=== PATIENT | female | born 1985 | race Caucasian/White ===

== ENCOUNTER 2016-06-20 10:33 | Inpatient (IN) ==
[2016-06-20] MEDS ORDERED: PEPCID IV PRN (20:26)
[2016-06-20] MEDS ORDERED: PEPCID PO PRN (20:26)
[2016-06-20] MEDS ORDERED: STADOL IV PRN ×3 (20:26)
[2016-06-20] MEDS ORDERED: ZOFRAN IV PRN (20:26)
[2016-06-20] MEDS ORDERED: AMBIEN PO PRN (20:26)
[2016-06-20] MEDS ORDERED: BRETHINE SUBQ PRN (20:26)
[2016-06-20] MEDS ORDERED: TYLENOL PO PRN (20:26)
[2016-06-20] MEDS ORDERED: AMPICILLIN 2 GM/NS 2 GM/100 ML IVPB IV ONE (20:26)
[2016-06-20] MEDS ORDERED: KEFZOL 1 GM/D5W 1 GM/50 ML IVPB IV PRN (20:26)
[2016-06-20] MEDS: LR 1,000 ML IV ONE (22:28)
[2016-06-20] MEDS ORDERED: CYTOTEC PO ONE (23:00)
[2016-06-20 23:11] LABS: MANUAL DIFF NEEDED? NO
[2016-06-20 23:11] LABS: URINE SOURCE VOIDED
[2016-06-20 23:20] LABS: BASO% 0.2 % (0.0-0.8); EOS# 0.11 X1000 (0.0-0.7); EOS% 0.7 % (0.0-10.0); HEMATOCRIT 36.2 % (37.0-47.0); IMM GRAN# 0.05 X1000 (0.0-0.04); IMM GRAN% 0.3 % (0.0-0.5); LYMPH# 2.73 X1000 (1.2-3.4); LYMPH% 17.5 % (20.5-51.1); MCH 29.3 PG (27-31); MCHC 33.1 g/dL (33-37); MCV 88.5 FL (81-99); MONO# 0.98 X1000 (0.11-0.59); MONO% 6.3 % (1.7-9.3); MPV 10.9 FL (7.4-10.4); PLT 345 X1000 (130-400); RBC 4.09 XMIL (4.2-5.4)
[2016-06-21 00:17] LABS: BILIRUBIN URINE NEGATIVE (NEGATIVE); BLOOD URINE NEGATIVE (NEGATIVE); CLARITY SL. CLOUDY (CLEAR); COLOR YELLOW; GLUCOSE URINE NEGATIVE (NEGATIVE); LEUKOCYTES URINE TRACE (NEGATIVE); NITRITE URINE NEGATIVE (NEGATIVE); PH URINE 6.5; PROTEIN URINE NEGATIVE (NEGATIVE); SP GRAVITY URINE 1.015; UR AMPHETAMINES QUAL NONE DETECTED (NONE DETECT); UR BARBITUATES QUAL NONE DETECTED (NONE DETECT); UR BENZODIAZEPIN QUAL NONE DETECTED (NONE DETECT); UR CANNABINOIDS QUAL NONE DETECTED (NONE DETECT); UR COCAINE QUAL NONE DETECTED (NONE DETECT); UR MDMA QUAL NONE DETECTED (NONE DETECT); UR METHADONE QUAL NONE DETECTED (NONE DETECT); UR METHAMPHETAMINE QUAL NONE DETECTED (NONE DETECT); UR OPIATES QUAL NONE DETECTED (NONE DETECT); UR OXYCODONE QUAL NONE DETECTED (NONE DETECT); UR PCP QUAL NONE DETECTED (NONE DETECT); UR TCA QUAL NONE DETECTED (NONE DETECT); UROBILINOGEN URINE NORMAL
[2016-06-21] MEDS ORDERED: CYTOTEC PO SCH (03:00)
[2016-06-21] MEDS: AMPICILLIN 1 GM/NS 1 GM/50 ML IVPB IV SCH ×4 (03:30→14:54)
[2016-06-21] MEDS: LR 1,000 ML IV ONE ×2 (06:52→11:56)
[2016-06-21] MEDS ORDERED: PITOCIN 30 UNITS/LR 30 UNITS/500 ML IV.SOLN IV SCH (07:00)
[2016-06-21] MEDS ORDERED: LR 0 ML ONE (11:31)
[2016-06-21] MEDS ORDERED: FENTANYL-BUPIV-NS 2 MCG-0.1% 200 ML ONE (11:31)
[2016-06-21] MEDS ORDERED: XYLOCAINE-MPF 1% 5 ML ONE (11:33)
[2016-06-21] MEDS ORDERED: FENTANYL-BUPIV-NS 2 MCG-0.1% 200 ML EPIDURAL PRN (11:56)
[2016-06-21] MEDS ORDERED: LR 1,000 ML ONE ×2 (14:46→18:26)
[2016-06-21] MEDS ORDERED: NESACAINE-MPF 3% ONE (17:10)
[2016-06-21] MEDS ORDERED: FENTANYL ONE (17:10)
[2016-06-21] MEDS ORDERED: SENSORCAINE-MPF 0.5%/EPI 1:200,000 ONE (17:10)
[2016-06-21] MEDS ORDERED: PITOCIN ONE ×2 (18:18→18:21)
[2016-06-21] MEDS ORDERED: DURAMORPH ONE (18:19)
[2016-06-21] MEDS ORDERED: PITOCIN 20 UNITS/LR 20 UNITS/1,000 ML IV.SOLN ONE ×2 (18:19→21:52)
[2016-06-21] MEDS ORDERED: ZOFRAN ONE ×2 (18:19→22:35)
[2016-06-21] MEDS ORDERED: METHERGINE ONE (18:20)
[2016-06-21] MEDS ORDERED: BICITRA ONE (18:26)
[2016-06-21] MEDS ORDERED: BENADRYL IV PRN (18:32)
[2016-06-21] MEDS ORDERED: ZOFRAN ODT PO PRN (18:32)
[2016-06-21] MEDS ORDERED: ZOFRAN IV PRN ×2 (18:32)
[2016-06-21] MEDS ORDERED: NARCAN INJ PRN (18:32)
[2016-06-21] MEDS ORDERED: TORADOL IV PRN (18:33)
[2016-06-21] MEDS ORDERED: NORCO-5 PO PRN ×3 (18:33→22:16)
[2016-06-21] MEDS ORDERED: NORCO-10 PO PRN ×2 (18:34→20:08)
--- NOTE | 2016-06-21 18:38 | HISTORY AND PHYSICAL ---
PHYSICIAN: Dr. Duncan. PREOPERATIVE DIAGNOSIS: Failed induction of labor. SUMMARY: Melissa Prakash is a 30-year-old primigravida who is at 39-1/2 weeks gestation. Her blood type is A negative. Rubella immune. Hepatitis B surface antigen, HIV are negative. Group B strep is positive. The patient had late entry into care. We are basing her due date on last menstrual period and her ultrasounds. Her blood pressures have been increasing. Dr. Chicas made the decision to proceed with induction of labor due to -induced hypertension. She was brought into labor and delivery last night and received Cytotec. We also began group B strep prophylaxis. She was closed and uneffaced is when I 1st checked her this morning. Later in the morning she was 2 cm, 50% -1, I was able to break her water. She has made no significant change in her cervical dilatation since that time. After discussing options with the patient, decision was made to proceed with delivery due to failed induction of labor. PAST MEDICAL HISTORY: Patient has no chronic medical or surgical illnesses. CURRENT MEDICATIONS: vitamins. ALLERGIES: None. PHYSICAL EXAMINATION: GENERAL: Shows an obese, gravid female. VITAL SIGNS: Stable. She is afebrile. CARDIOVASCULAR: Regular rate and rhythm. No murmurs, rubs, gallops. PULMONARY: Clear. BREASTS: No masses. ABDOMEN: Gravid, cervix as above. EXTREMITIES: 1+ edema. IMPRESSION: 1. Term . 2. -induced hypertension. 3. Failed induction of labor. PLAN: Due to failed induction of labor will proceed with delivery. Risks, benefits, possible complications, reasonable expectations of this operation have been discussed in detail. cc: Newton Duncan MD
[2016-06-21] MEDS ORDERED: CYTOTEC PO PRN ×2 (20:08→22:16)
[2016-06-21] MEDS ORDERED: PERCOCET-10 PO PRN (20:08)
[2016-06-21] MEDS ORDERED: DEMEROL PO PRN ×4 (20:08→22:16)
[2016-06-21] MEDS ORDERED: HYDROXYZINE IM PRN ×2 (20:08→22:16)
[2016-06-21] MEDS ORDERED: DEMEROL IM PRN ×2 (20:08→22:16)
[2016-06-21] MEDS ORDERED: PITOCIN 20 UNITS/LR 20 UNITS/1,000 ML IV.SOLN IV ONE ×2 (20:08→22:16)
[2016-06-21] MEDS ORDERED: PITOCIN IM PRN ×2 (20:08→22:16)
[2016-06-21] MEDS ORDERED: MOTRIN PO PRN (20:08)
[2016-06-21] MEDS ORDERED: BOOSTRIX VACCINE IM ONE (20:08)
[2016-06-21] MEDS ORDERED: PHENERGAN IM PRN ×2 (20:08→22:16)
[2016-06-21] MEDS ORDERED: DULCOLAX PR PRN ×2 (20:08→22:16)
[2016-06-21] MEDS ORDERED: MYLICON PO PRN ×2 (20:08→22:16)
[2016-06-21] MEDS ORDERED: M-M-R II VACCINE SUBQ ONE (20:08)
[2016-06-21] MEDS ORDERED: AMBIEN PO PRN ×2 (20:08→22:16)
[2016-06-21] MEDS ORDERED: HYDROXYZINE PO PRN ×2 (20:08→22:16)
[2016-06-21] MEDS ORDERED: PERCOCET-5 PO PRN (20:08)
[2016-06-21] MEDS ORDERED: TORADOL IV SCH (20:15)
[2016-06-21] MEDS ORDERED: PITOCIN 10 UNITS/LR 10 UNIT/1,000 ML IV.SOLN IV SCH ×2 (20:15→22:30)
--- NOTE | 2016-06-21 20:42 | OPERATIVE NOTE ---
PROCEDURE DATE: 06/21/2016 SURGEON: Dr. Duncan. ANESTHESIA: Spinal by Dr. Henry. OPERATION PERFORMED: Primary low transverse section. PREOPERATIVE DIAGNOSES: 1. Term . 2. -induced hypertension. 3. Failed induction of labor. POSTOPERATIVE DIAGNOSES: 1. Term . 2. -induced hypertension. 3. Failed induction of labor. FINDINGS: At 1928 a 7-pound 1-ounce male infant was delivered in a vertex presentation. There was a nuchal cord x1. Apgars were 9 at 1 minute and 10 at 5 minutes. SUMMARY: Patient was taken back to the operating room and after spinal anesthesia was placed in supine position. The abdomen was prepped and draped in usual fashion. A Rai catheter was in the urinary bladder. Once satisfactory conduction anesthesia was demonstrated, a Pfannenstiel incision was made. This incision was taken down to the fascia. The fascia was excised transversely. The underlying rectus muscle was bluntly and sharply dissected free. The rectus muscle was in midline. The peritoneum was entered. Lower uterine segment was identified. A bladder flap was created. A low transverse incision was made across the myometrium. This incision was extended laterally using digital pressure. Amniotic membranes were ruptured. There was clear fluid. The 's vertex was delivered through this incision without difficulty. The shoulders and body delivered without complications. The oropharynx was bulb suctioned. Cord was clamped and cut. The was handed to the nurses further care and evaluation. Cord blood was obtained. Placenta was manually removed. The uterus was delivered onto the abdominal wall and explored. All membrane fragments were removed. The myometrium was reapproximated using a running #1 chromic suture followed by several [id number] chromic sutures for complete hemostasis across the suture line. The uterus was placed back in pelvic cavity. Uterine incision was reexamined and found to be hemostatic. Our 1st and 2nd sponge, instrument and needle counts were reported as correct at this time. Peritoneum was closed using a running chromic suture. Fascia closed using running Vicryl sutures x2. Third and final sponge, instrument and needle counts were reported as correct. Adipose tissue was reapproximated using running 3-0 Vicryl suture and skin edges reapproximated using 3-0 Monocryl suture. Blood loss estimated by anesthesia at 700 mL and no complications. The patient went to the recovery room in stable condition. cc: Newton Duncan MD
[2016-06-21] MEDS ORDERED: PERICOLACE PO SCH (21:00)
[2016-06-21] MEDS ORDERED: MYLICON PO SCH (21:00)
[2016-06-21] MEDS: TORADOL IV SCH (22:32)
[2016-06-21] MEDS ORDERED: CYTOTEC PO ONE (23:00)
[2016-06-22] MEDS: TORADOL IV SCH ×3 (04:20→17:21)
[2016-06-22 06:31] LABS: HEMATOCRIT 35.2 % (37.0-47.0); HEMOGLOBIN 11.6 g/dL (12.0-16.0); MCH 29.8 PG (27-31); MCV 90.5 FL (81-99); MPV 10.3 FL (7.4-10.4); RBC 3.89 XMIL (4.2-5.4)
[2016-06-22] MEDS: MYLICON PO SCH ×4 (09:00→20:51)
[2016-06-22] MEDS: PERCOCET-5 PO PRN ×2 (14:20→21:03)
[2016-06-22] MEDS: NORCO-10 PO PRN (17:22)
[2016-06-22] MEDS ORDERED: LR 1,000 ML IV SCH ×2 (20:08→22:16)
[2016-06-22] MEDS: PERICOLACE PO SCH (20:51)
[2016-06-22] MEDS: MOTRIN PO PRN (21:03)
[2016-06-23] MEDS: MOTRIN PO PRN ×2 (04:57→23:03)
[2016-06-23] MEDS: PERCOCET-10 PO PRN ×4 (04:57→19:17)
[2016-06-23] MEDS: MYLICON PO SCH ×4 (07:59→23:03)
--- NOTE | 2016-06-23 14:44 | PROGRESS NOTE ---
DATE: 06/23/2016 SUBJECTIVE: She is postoperative day and day 2. Her vital signs are stable. She is afebrile. She complains of pain. Ms. Prakash is doing fairly well. She is ambulating, although states she is in quite a bit of pain. She has tolerated p.o., ambulated, voided, and has taken a shower. Has not had any major setbacks. OBJECTIVE: Vital Signs: Stable. She is afebrile. General: She is alert and cooperative, appears to be in mild distress. Neck: Supple. Lungs: Clear. Heart: Regular sinus rhythm. Abdomen: Soft. Incision is dry and intact. Extremities: Lower extremity edema +2. ASSESSMENT: Postoperative day 2. PLAN: Probable discharge in the morning. Otherwise, routine and postoperative care. cc: MD Newton Marshall MD
[2016-06-23] MEDS: NORCO-10 PO PRN (23:03)
[2016-06-23] MEDS: PERICOLACE PO SCH (23:03)
[2016-06-24] MEDS: PERCOCET-10 PO PRN ×3 (08:08→16:24)
[2016-06-24] MEDS: MYLICON PO SCH ×3 (08:09→16:24)
[2016-06-24] MEDS: MOTRIN PO PRN ×2 (08:09→16:24)
[2016-06-24 11:56] VITALS: BP 144/82
--- NOTE | 2016-06-25 11:59 | DISCHARGE SUMMARY ---
ADMISSION DATE: 06/20/2016 DISCHARGE DATE: 06/24/2016 PRINCIPAL DIAGNOSIS: Intrauterine at 39 plus 4. SECONDARY DIAGNOSIS: Failed induction of labor. PROCEDURE: Primary low transverse section. HOSPITAL COURSE: Patient was admitted on 06/20/2016 for a scheduled induction of labor secondary to failure to progress. The decision was made to proceed forward with a primary low transverse section. Procedure was performed without complications and patient was subsequently transferred to mother/baby once deemed stable. The patient has made an uneventful recovery. She is stable for discharge on postoperative day #3. The patient notes pain is well controlled with p.o. pain medications. No nausea or vomiting. Her lochia is less than menses. She is ambulating without assistance. CONDITION ON DISCHARGE: Stable. ALIMENTATION CAPACITY: Independent. FEEDING CAPACITY: Independent. LOCOMOTION CAPACITY: Independent. REHAB POTENTIAL: Good. PROGNOSIS: Good. DISCHARGE MEDICATIONS: Include Percocet 5/325 1-2 tablets p.o. q.6 hours p.r.n. pain. DISCHARGE DIET: Patient is to maintain a regular diet. PHYSICAL ACTIVITY: As tolerated. DISCHARGE INSTRUCTIONS: Patient is ordered to maintain pelvic rest x6 weeks. The patient is ordered to call or return if fever greater than 100.4, heavy vaginal bleeding, foul smelling vaginal discharge, or any other acute changes. She is to be discharged home. She is to follow up Dr. Duncan in 2 weeks for incision check. cc: MD Newton Quinn MD
== END 2016-06-24 18:10 | disposition home or self-care (01) ==
LOC: P.LD 20:12 → P.WC 06-22 01:16
PROVIDERS: ADMIT Obstetrics & Gynecology; ATTEND Obstetrics & Gynecology